=== PATIENT | female | born 1965 | race African-American/Black ===

== ENCOUNTER 2020-12-20 19:12 | Emergency (ER) | payer MEDICAID, MEDICARE ==
[~2020-12-20] VITALS: Ht 165.1 cm; Wt 79.5 kg
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
[2020-12-20] MEDS ORDERED: ONDANSETRON ODT 4 MG ONE (19:42)
[2020-12-20] MEDS ORDERED: ONDANSETRON ODT 4 MG PO ONE (20:00)
[2020-12-20] MEDS ORDERED: SODIUM CHLORIDE 0.9% 1,000 ML IV ONE (20:00)
[2020-12-20 20:12] LABS: BASOPHILS % (AUTO) 0 % (0-1); EOSINOPHILS % (AUTO) 3 % (1-7); LYMPHOCYTES % (AUTO) 31 % (22-44); MEAN CORPUSCULAR HEMOGLOBIN 27.4 pg (27.0-34.8); MEAN CORPUSCULAR HGB CONC 31.9 g/dL (32.4-35.8); MEAN PLATELET VOLUME 9.6 fL (7.4-10.4); MONOCYTES % (AUTO) 7 % (2-9); NEUTROPHILS % (AUTO) 59 % (42-75); PLATELET COUNT 145 x10^3/uL (130-400); RED BLOOD COUNT 4.48 x10^6/uL (3.82-5.3); RED CELL DISTRIBUTION WIDTH 14.4 % (9.6-15.2)
[2020-12-20 20:25] LABS: ALBUMIN 3.9 g/dL (3.4-5.0); ANION GAP 8 mmol/L (5-15); CALCIUM 9.5 mg/dL (8.5-10.1); CHLORIDE 111 mmol/L (98-107)
[2020-12-20 20:30] LABS: CREATININE 1.42 mg/dL (0.55-1.02); TROPONIN I < 0.015 ng/mL (0.000-0.045)
[2020-12-20] MEDS ORDERED: SODIUM CHLORIDE FLUSH 10ML SYR IVF ONE (20:30)
--- NOTE | 2020-12-20 20:38 | NUR ---
PT RESTING ON GURNEY. NADN. [facility].
--- NOTE | 2020-12-20 20:49 | NUR ---
PT CHART REVIEWED AND PLACED FOR RECHECK.
--- NOTE | 2020-12-20 21:18 | NUR ---
REPORT GIVEN TO EPIFANIO LE RN.
[2020-12-20 22:12] VITALS: BP 150/84
== END 2020-12-20 22:17 | disposition home or self-care (01) ==
LOC: ED 20:37
DX: R06.00 Dyspnea, unspecified (principal); R11.0 Nausea; R07.89 Other chest pain; R06.02 Shortness of breath; R94.31 Abnormal electrocardiogram [ECG] [EKG]; N18.9 Chronic kidney disease, unspecified; Z87.891 Personal history of nicotine dependence
CPT/HCPCS: 36415; 71045; 80048; 82040; 84484; 85025; 93005; 99285; Q0162